=== PATIENT | male | born 1950 | race Caucasian/White ===

== ENCOUNTER 2023-11-21 17:15 | Emergency (ER) | payer MEDICARE, SELFPAY ==
[2023-11-21 17:15] VITALS: BP 142/79; PULSE 87; RESP 20; TEMP 36.4; O2SAT 96
--- NOTE | 2023-11-21 17:18 | ED.EYEPROB ---
HPI - Eye Problem General Chief complaint: Eye Problems Stated complaint: eye irriation Time Seen by Provider: 11/21/23 17:17 Source: patient Mode of arrival: ambulatory Limitations: no limitations History of Present Illness HPI Narrative: patient is a 73-year-old male with bilateral eye irritation and thick yellow-green discharge. Patient woke-up this morning with similar symptoms. No vision changes. chief complaint: eye redness Onset (ago): day(s) (1) Onset description: sudden Duration: constant Location: both eyes Eye Symptoms: burning, redness, itching, discharge and blurry vision Place: home Mechanism: none Severity: moderate Severity scale (1-10): 1 If Pain, Quality: burning Associated symptoms: none Treatments Prior to Arrival: none Related Data Allergies Allergy/AdvReac Type Severity Reaction Status Date / Time No Known Allergies Allergy Verified 11/21/23 17:28 Review of Systems Review of Systems: All systems reviewed & are unremarkable except as noted in HPI and below Constitutional: Constitutional: Reports no additional constitutional complaints Eyes: Eyes: Reports no additional eye complaints ENT: Reports system reviewed and no additional complaints, except as documented Cardiovascular: Cardiovascular: Reports no additional cardiovascular complaints Respiratory: Respiratory: Reports no additional respiratory complaints Gastrointestinal: Gastrointestinal: Reports no additional gastrointestinal complaints Genitourinary: Genitourinary: Reports no additional male genitourinary complaints Musculoskeletal: Musculoskeletal: Reports no additional musculoskeletal complaints Integumentary/Breasts: Skin/Breast: Reports system reviewed and no additional complaints, except as docu Neurologic: Reports system reviewed and no additional complaints, except as documented Psychiatric: Psychiatric: Reports no additional psychiatric complaints Endocrine: Endocrine: Reports no additional endocrine complaints Hematologic/Lymphatic: Hematologic/Lymphatic: Reports no additional hematologic/lymphatic complaints Allergic/Immunologic: Allergic/Immunologic: Reports no additional allergic/immunologic complaints Exam Const: General: healthy appearing Nutritional Appearance: well nourished Orientation/consciousness: patient oriented x3 HENMT: Head: normal to inspection Ears: external ears normal Face/Nose/Sinus: Normal external nose present Eyes: Conjunctivae: abnormal conjunctivae and conjunctival abnormality bilateral Pupils: Equal, round and reactive pupils present EOM: EOMs intact bilaterally Direct Ophthalmoscopy: photophobia Other: red and irritated conjunctiva early with thick yellow-green discharge on the corners of the eyes bilaterally Neck: Neck: normal visual inspection Chest: Chest palpation & inspection: normal inspection of the chest Resp: Effort & Inspection: normal respiratory effort and not labored Auscultation: clear to auscultation bilaterally Cardio: Rate: regular rate Rhythm: regular rhythm Heart sounds: no murmurs GI: Inspection: non-distended Auscultation: normal bowel sounds and bowel sounds present : General: Yes bladder normal to palpation Back/Spine/Pelvis: Back: no CVA tenderness Skin: General skin exam: normal color Rashes: no rashes Wounds: no wounds Neuro: General: patient oriented x3 Cranial nerves: Yes Nystagmus not present Speech: normal speech Extrem: General: normal to inspection Psych: Mental Status: mental status grossly normal Affect: normal affect Attitude: cooperative Course Vital Signs Vital signs: Vital Signs Temperature 36.4 C 11/21/23 17:15 Pulse Rate 87 11/21/23 17:15 Respiratory Rate 20 11/21/23 17:15 Blood Pressure 142/79 H 11/21/23 17:15 Pulse Oximetry 96 11/21/23 17:15 Oxygen Delivery Room Air 11/21/23 17:15 Temperature 36.4 C 11/21/23 17:15 Pulse Rate 87 11/21/23 17:15 Respiratory Rate 2
[2023-11-21] MEDS: NEOMYCIN/POLYMYXIN/HYDROCORT 7.5 ML EYE DROPS (*BKC) 2 DROP EACH EYE (17:41)
[2023-11-21] MEDS: DACRIOSE EYE IRRIGATION 118 ML BOTTLE 120 ML EACH EYE (18:05)
[2023-11-21] MEDS: TETRACAINE HCL 0.5% OPHTH SOLN 4 ML BTL 1 DROP EACH EYE (18:06)
[2023-11-21] MEDS: CIPROFLOXACIN HCL 0.3% OP SOLN 2.5 ML BTL 1 DROP EACH EYE (18:12)
== END 2023-11-21 18:17 | disposition home or self-care (01) ==
PROVIDERS: Emergency Provider Emergency Medicine
DX: H10.9 Unspecified conjunctivitis (principal)
CPT/HCPCS: 99283; A9270